=== PATIENT | female | born 1975 | race Two or more races ===

== ENCOUNTER 2018-11-10 17:58 | Inpatient (IN) | payer MEDICAID ==
[~2018-11-10] VITALS: Ht 154.9 cm; Wt 66.2 kg
--- NOTE | 2018-11-10 17:58 | NUR ---
PT BIBSELF FOR ABD PAIN, LOWER ABD. ALSO C/O BACK PAIN AND PRESSURE IN VAGINA; PT AAOX4, -SOB, NAD NOTED, VSS, PENDING MD PONCE
[2018-11-10 18:45] LABS: APPEARANCE,URINE Slightly Cloudy (CLEAR); BILIRUBIN,URINE Negative (NEGATIVE); BLOOD, URINE Trace-intact Ery/uL (NEGATIVE); COLOR,URINE DARK YELLOW (YELLOW); KETONES,URINE Negative (NEGATIVE); LEUKOCYTE ESTERASE ,URINE Small (NEGATIVE); NITRITE, URINE Positive (NEGATIVE); PROTEIN,URINE 30 mg/dl (NEGATIVE); UGLUCOSE Negative (NEGATIVE)
[2018-11-10 18:52] LABS: BACTERIA,URINE Moderate /HPF (None Seen); SQUAMOUS EPITHELIAL CELL,UR Moderate /HPF (None Seen)
[2018-11-10] MEDS ORDERED: ONDANSETRON HCL/PF 4 MG/2 ML VIAL ONE (18:54)
[2018-11-10] MEDS ORDERED: MORPHINE SULFATE INJ 4 MG/ML DISP.SYRIN ONE (18:54)
[2018-11-10 18:55] LABS: BASOPHILS # (AUTO) 0.1 /CMM (0.0-0.2); BASOPHILS % (AUTO) 0.6 % (0.0-2.0); LYMPHOCYTES % (AUTO) 10.3 % (20.0-44.0); MEAN CORPUSCULAR HGB CONC 33 g/dl (31.0-36.0); MEAN CORPUSCULAR VOLUME 93 fL (82-100); MONOCYTES # (AUTO) 0.6 /CMM (0.1-1.30); MONOCYTES % (AUTO) 5.9 % (2.0-12.0); NEUTROPHILS # (AUTO) 7.9 /CMM (1.8-8.9); NEUTROPHILS % (AUTO) 81.2 % (43.0-81.0); PLATELET COUNT (AUTO) 343 /CMM (150-450); WHITE BLOOD COUNT (AUTO) 9.7 K/uL (4.3-11.0)
[2018-11-10 18:59] LABS: HEMATOCRIT 18 % (33-45); HEMOGLOBIN 5.9 g/dL (11.5-14.8); RED BLOOD CELL COUNT(AUTO) 1.92 MIL/uL (4.0-5.2)
[2018-11-10] MEDS ORDERED: IV NS 0.9% 1,000 ML BAG IV ONE (19:00)
[2018-11-10] MEDS ORDERED: ONDANSETRON HCL/PF 4 MG/2 ML VIAL IVP ONE (19:00)
[2018-11-10] MEDS ORDERED: MORPHINE SULFATE INJ 2 MG/ML DISP.SYRIN IV ONE (19:00)
[2018-11-10 19:04] LABS: CALCIUM, SERUM 8.6 mg/dL (8.5-10.1); CREATININE 0.9 mg/dL (0.6-1.3); POTASSIUM 3.6 mmol/L (3.5-5.1)
--- NOTE | 2018-11-10 19:06 | NUR ---
HGB 5.9; HCT 18 JUAN ANTONIO TRUJILLO
[2018-11-10 19:17] LABS: ALBUMIN 3.5 g/dL (3.4-5.0); BILIRUBIN,DIRECT 0.7 mg/dL (0.0-0.2); BILIRUBIN,TOTAL 2.8 mg/dL (0.2-1.0)
--- NOTE | 2018-11-10 19:19 | NUR ---
REPORT GIVEN TO EMA FOR CONNIE
--- NOTE | 2018-11-10 19:32 | NUR ---
NET LEAD ARCHITECT IS AT THE BEDSIDE FOR BLOOD DRAW. BLOOD CULTURES X 2.
--- NOTE | 2018-11-10 19:35 | NUR ---
COMPUTER SUPPORT SPECIALIST INSTRUCTOR MARTI ELLIS SPEAKING TO PA
--- NOTE | 2018-11-10 19:39 | NUR ---
CALLED HOUSE SUP FOR MS BED
--- NOTE | 2018-11-10 19:45 | NUR ---
Annabella TRONCOSO PA-C IS AT THE BEDSIDE SPEAKING TO THE PT RE: POC. SHELLEY CANALES IS AT THE BEDSIDE DOING MONGOLIAN TRANSLATION FOR SHANA OLSON
[2018-11-10] MEDS ORDERED: ZOLPIDEM TARTRATE 5 MG TABLET PO PRN (20:00)
[2018-11-10] MEDS ORDERED: MAG HYDROX/AL HYDROX/SIMETH 30 ML UDC PO PRN (20:00)
[2018-11-10] MEDS ORDERED: ONDANSETRON HCL/PF 4 MG/2 ML VIAL IVP PRN (20:00)
[2018-11-10] MEDS ORDERED: Z GUARD REMEDY 2 OZ OINT TP PRN (20:00)
[2018-11-10] MEDS ORDERED: CEFTRIAXONE 1GM BAG (ER ONLY) 1 GM/50 ML PIGGYBACK IV ONE (20:00)
[2018-11-10] MEDS ORDERED: ACETAMINOPHEN 325 MG TABLET PO PRN (20:00)
--- NOTE | 2018-11-10 20:03 | NUR ---
MS BED 110 GIVEN
[2018-11-10 20:10] LABS: OCCULT BLOOD STOOL NEGATIVE (NEGATIVE)
[2018-11-10] MEDS ORDERED: IOHEXOL-300 100 ML VIAL IV ONE (20:11)
--- NOTE | 2018-11-10 20:12 | NUR ---
PT LEFT FOR CT VIA GURNEY.
[2018-11-10 20:15] LABS: BAND % (MANUAL) 1 % (0.0-5.0); EOSINOPHILS % (MANUAL) 1 % (0-4); LYMPHOCYTES % (MANUAL) 10 % (16-48); MONOCYTES % (MANUAL) 1 % (0-11.0); NEUTROPHILS % (MANUAL) 87 (42-76)
[2018-11-10] MEDS ORDERED: CEFTRIAXONE 1GM BAG (ER ONLY) 50 ML IV ONE (20:16)
--- NOTE | 2018-11-10 20:22 | NUR ---
PT RETURNED FROM CT.
--- NOTE | 2018-11-10 21:04 | NUR ---
LAB CALLED PT IS POSITIVE FOR ANTIBODIES.
--- NOTE | 2018-11-10 21:16 | NUR ---
Parris balderas in [facility] - 11/10/18 at 2121 by ROLANDO REPORT GIVEN TO KEYUR THOMSON
--- NOTE | 2018-11-10 21:17 | NUR ---
Parris balderas in [facility] - 11/10/18 at 2121 by ROLANDO [id number] HOLD FOR GD,
--- NOTE | 2018-11-10 22:00 | NUR ---
RN ADMITTING NOTES BROUGHT PT FROM ER, AWAKE ALERT ORIENTEDX4, BREATHING EVEN AND UNLABORED ON ROOM AIR, NO SOB. NO COMPLAINT OF PAIN OR DISCOMFORT AT THIS TIME. IV ACCESS ON THE RIGHT AC. BED IN LOWEST LOCKED POSITION, CALL LIGHT WITHIN REACH AT ALL TIMES, WILL CONTINUE TO MONITOR AND ENTER ADMISSION.
--- NOTE | 2018-11-10 22:07 | NUR ---
PT WAS TRANSPORTED TO [facility] VIA [facility] WITH ALIX LOPEZ AND DARIUS, SHELLEY.
--- NOTE | 2018-11-10 22:09 | NUR ---
ALIX LOPEZ TO ASSUME CARE OF PT IN TELE.
[2018-11-10] MEDS: IV NS 0.9% 1,000 ML IV PRN (23:32)
[2018-11-11] VITALS (18 sets, daily range): BP systolic 94–115; BP diastolic 38–74
--- NOTE | 2018-11-11 06:12 | NUR ---
SENIOR IT AUDITOR CLOSING NOTES PT REMAINS IN BED, SLEEPING, EASILY AROUSED TO NAME CALL, BREATHING EVEN AND UNLABORED ON ROOM AIR, NO SOB. NO COMPLAINT OF PAIN OR DISCOMFORT AT THIS TIME. FISH EGG PACKER IN PLACE, SR IN THE 80S IV ACCESS ON THE RIGHT AC WITH NS @75ML/HR. BED IN LOWEST LOCKED POSITION, CALL LIGHT WITHIN REACH AT ALL TIMES, WILL ENDORSE TO DAY NURSE FOR CONNIE.
[2018-11-11 06:53] LABS: BASOPHILS # (AUTO) 0.1 /CMM (0.0-0.2); BASOPHILS % (AUTO) 0.8 % (0.0-2.0); EOSINOPHILS % (AUTO) 1.9 % (0.0-6.0); LYMPHOCYTES # (AUTO) 0.7 /CMM (0.8-4.8); LYMPHOCYTES % (AUTO) 8.1 % (20.0-44.0); MEAN CORPUSCULAR HGB CONC 32 g/dl (31.0-36.0); MEAN CORPUSCULAR VOLUME 95 fL (82-100); MONOCYTES # (AUTO) 0.5 /CMM (0.1-1.30); MONOCYTES % (AUTO) 6.1 % (2.0-12.0); NEUTROPHILS # (AUTO) 6.8 /CMM (1.8-8.9); NEUTROPHILS % (AUTO) 83.1 % (43.0-81.0); PLATELET COUNT (AUTO) 301 /CMM (150-450); WHITE BLOOD COUNT (AUTO) 8.2 K/uL (4.3-11.0)
[2018-11-11 07:02] LABS: CALCIUM, SERUM 8.4 mg/dL (8.5-10.1); CREATININE 0.9 mg/dL (0.6-1.3); MAGNESIUM 1.8 mg/dL (1.8-2.4); PHOSPHORUS 3.2 mg/dL (2.5-4.9); POTASSIUM 3.2 mmol/L (3.5-5.1); TOTAL PROTEIN, SERUM 7.1 g/dL (6.4-8.2)
[2018-11-11 07:04] LABS: RED BLOOD CELL COUNT(AUTO) 1.74 MIL/uL (4.0-5.2)
[2018-11-11 07:09] LABS: HEMATOCRIT 17 % (33-45); HEMOGLOBIN 5.3 g/dL (11.5-14.8)
[2018-11-11 07:32] LABS: IRON, SERUM 72 ug/dl (50-175); TOTAL IRON BINDING CAPACITY 199 ug/dl (250-450)
--- NOTE | 2018-11-11 08:02 | NUR ---
RADIO COMMUNICATION COORDINATOR OPENING NOTES RECEIVED PATIENT IN BED. A/O X4 TAJIK SPEAKING NO SIGNS OR SYMPTOMS OF RESPIRATORY DISTRESS C/O LOW FLANK PAIN WILL MEDICATE ORDERED. SINUS ON THE MONITOR SKIN INATCT IVF RUNNING IN RAC # 20 GAUGE @ 75 ML/HR. AWAITING FOR BLOOD FROM BLOOD BANK HGB 5.9 HCT 18. SAFETY AND FALL PRECAUTIONS IN PLACE BED IN LOW POSITION CALL LIGHT WITHIN REACH WILL CONT TO MONITOR ACCORDINGLY.
[2018-11-11] MEDS: HYDROCODONE/APAP 5/325MG 1 EACH TABLET PO PRN ×2 (08:14→15:49)
[2018-11-11 08:54] LABS: EOSINOPHILS % (MANUAL) 2 % (0-4); LYMPHOCYTES % (MANUAL) 6 % (16-48); MONOCYTES % (MANUAL) 7 % (0-11.0); NEUTROPHILS % (MANUAL) 85 (42-76)
[2018-11-11] MEDS: POTASSIUM CHLORIDE 20 MEQ TAB.PRT.SR PO SCH ×2 (09:48→10:30)
[2018-11-11] MEDS ORDERED: POTASSIUM CHLORIDE 20 MEQ TAB.PRT.SR PO ONE (12:00)
[2018-11-11] MEDS: IV NS 0.9% 1,000 ML IV PRN (12:58)
--- NOTE | 2018-11-11 14:17 | NUR ---
LAB CALLED IN REGARDS TO BLOOD TRANSFUSION HAS WARM AUTOANTIBODY AND NO ALOANTIBODY PRESENT DR LOU NOTIFIED PER LABS REQUEST
--- NOTE | 2018-11-11 14:21 | NUR ---
DR LOU REPLIED AND WOULD LIKE DR WHITT TO BE CONSULTED
--- NOTE | 2018-11-11 14:35 | NUR ---
DR WHITT CALLED BACK AND WILL CALL LAB
[2018-11-11] MEDS: methylPREDNISolone SOD SUCC 125 MG/2ML VIAL IV SCH (15:42)
--- NOTE | 2018-11-11 17:12 | NUR ---
BLOOD TRABFUSION STARTED @ 130 ML/HR FOR FIRST 15 MINUTES WILL BE LOWERED IF NO RXN
--- NOTE | 2018-11-11 19:01 | NUR ---
RN MS NOTES NOTES PATIENT IN BED. A/O X4 EGYPTIAN SPEAKING NO SIGNS OR SYMPTOMS OF RESPIRATORY DISTRESS C/O LOW FLANK PAIN WILL MEDICATE ORDERED.AMBULATORY IN ROOM AND TO BATHROOM SKIN INTACT PRBC RUNNING IN RAC #20 GAUGE HGB 5.[address] WHITT TO SEE PATIENT ORDERS OBTAINED.POTASSIUM REPLACED ORDERED CONSENT SIGNED FOR CT OF NECK AND CHEST AFTER TRANSFUSION.MULTIPLE FAMILY MEMBERS AT BEDSIDE THROUGHOUT THE DAY. SAFETY AND FALL PRECAUTIONS IN PLACE BED IN LOW POSITION CALL LIGHT WITHIN REACH
--- NOTE | 2018-11-11 19:15 | NUR ---
MS RN NOTE PATIENT RECEIVED IN BED WITH FAMILY AT BEDSIDE TOLERATING BLOOD TRANSFUSION NO S/S OF REJECTION AT THIS TIME. POC DISCUSSED WITH FAMILY AND GOALS STATED.
--- NOTE | 2018-11-11 19:17 | NUR ---
REPORT ENDORSED TO NOC
[2018-11-11] MEDS: FOLIC ACID 1 MG TABLET PO SCH (19:34)
--- NOTE | 2018-11-11 20:30 | NUR ---
MS RN NOTE BLOOD TRANSFUSION COMPLETED NO S/S OF ACUTE REACTION AT THIS TIME. US OF ABD/PELVIS/ TRANS VAG TAKEN AT THIS TIME WELL.
[2018-11-11] MEDS: CEFTRIAXONE 1 G in IV D5W 50 ML IV SCH (20:32)
[2018-11-11] MEDS ORDERED: IOHEXOL-300 100 ML VIAL IV ONE (21:20)
[2018-11-11] MEDS ORDERED: IV NS 0.9% 250 ML IV ONE (21:20)
[2018-11-11] MEDS ORDERED: CT SWABBABLE VALVE TRANS SET 1 EA INFUS.SET MC ONE (21:20)
--- NOTE | 2018-11-11 21:30 | NUR ---
MS RN NOTE PATIENT TAKEN FOR CT OF NECK AND CHEST PER MD ORDER.
--- NOTE | 2018-11-11 22:15 | NUR ---
MS RN NOTE PATIENT RETURNED FROM CT
[2018-11-11 22:19] LABS: BASOPHILS % (AUTO) 0.2 % (0.0-2.0); EOSINOPHILS % (AUTO) 0.1 % (0.0-6.0); HEMATOCRIT 21 % (33-45); LYMPHOCYTES # (AUTO) 0.4 /CMM (0.8-4.8); LYMPHOCYTES % (AUTO) 3.4 % (20.0-44.0); MEAN CORPUSCULAR HGB CONC 33 g/dl (31.0-36.0); MEAN CORPUSCULAR VOLUME 92 fL (82-100); MONOCYTES # (AUTO) 0.1 /CMM (0.1-1.30); MONOCYTES % (AUTO) 0.6 % (2.0-12.0); NEUTROPHILS % (AUTO) 95.7 % (43.0-81.0); PLATELET COUNT (AUTO) 350 /CMM (150-450); RED BLOOD CELL COUNT(AUTO) 2.32 MIL/uL (4.0-5.2); WHITE BLOOD COUNT (AUTO) 10.5 K/uL (4.3-11.0)
[2018-11-12] VITALS: BP 104/58
--- NOTE | 2018-11-12 01:45 | NUR ---
MS RN NOTE DR. MARCIAL READ AND INTERPRETED RESULTS OF CT OF NECK/CHEST, AND TRANS VAG ULTRASOUND. INSTRUCTED RN TO ENDORSE FINDINGS TO THE AM MD FIRST THING IN THE MORNING.
[2018-11-12 06:21] LABS: BASOPHILS % (AUTO) 0.2 % (0.0-2.0); HEMATOCRIT 21 % (33-45); LYMPHOCYTES # (AUTO) 0.6 /CMM (0.8-4.8); MEAN CORPUSCULAR HGB CONC 33 g/dl (31.0-36.0); MEAN CORPUSCULAR VOLUME 93 fL (82-100); MONOCYTES # (AUTO) 0.2 /CMM (0.1-1.30); MONOCYTES % (AUTO) 2.9 % (2.0-12.0); NEUTROPHILS # (AUTO) 7.4 /CMM (1.8-8.9); NEUTROPHILS % (AUTO) 89.9 % (43.0-81.0); PLATELET COUNT (AUTO) 363 /CMM (150-450); RED BLOOD CELL COUNT(AUTO) 2.23 MIL/uL (4.0-5.2); WHITE BLOOD COUNT (AUTO) 8.3 K/uL (4.3-11.0)
[2018-11-12 06:32] LABS: HEMOGLOBIN 6.8 g/dL (11.5-14.8)
[2018-11-12 06:37] LABS: CALCIUM, SERUM 8.9 mg/dL (8.5-10.1); CREATININE 0.9 mg/dL (0.6-1.3); POTASSIUM 4.2 mmol/L (3.5-5.1)
[2018-11-12] MEDS: HYDROCODONE/APAP 5/325MG 1 EACH TABLET PO PRN ×2 (06:52→22:11)
[2018-11-12 07:08] LABS: FERRITIN 776 ng/mL (8-388)
--- NOTE | 2018-11-12 07:10 | NUR ---
LEFT MESSAGE WITH DR WHITT IN REGARDS TO PELVIS US RESULTS.
[2018-11-12 07:25] LABS: BAND % (MANUAL) 2 % (0.0-5.0); LYMPHOCYTES % (MANUAL) 11 % (16-48); MONOCYTES % (MANUAL) 3 % (0-11.0); NEUTROPHILS % (MANUAL) 84 (42-76)
--- NOTE | 2018-11-12 07:33 | NUR ---
FRIT BURNER OPENING NOTES RECEIVED PATIENT IN BED. A/O X4 CAMEROONIAN SPEAKING NO SIGNS OR SYMPTOMS OF RESPIRATORY DISTRESS C/O LOW FLANK PAIN WILL MEDICATE ORDERED. SINUS ON THE MONITOR SKIN INATCT IVF RUNNING IN RAC # 20 GAUGE @ 75 ML/HR. AWAITING FOR BLOOD FROM BLOOD BANK HGB 5.9 HCT 18. SAFETY AND FALL PRECAUTIONS IN PLACE BED IN LOW POSITION CALL LIGHT WITHIN REACH WILL CONT TO MONITOR ACCORDINGLY. Addendum: 11/12/18 at 0735 by LATRELL BOONE RN CORRECT NOTES RN MS OPENING NOTES RECEIVED PATIENT IN BED. A/O X4 CAMEROONIAN SPEAKING NO SIGNS OR SYMPTOMS OF RESPIRATORY DISTRESS C/O LOW FLANK PAIN WILL MEDICATE ORDERED. SKIN INTACT IVF RUNNING IN RAC # 20 GAUGE @ 75 ML/HR.AMBULATORY IN ROOM WITH BATHROOM PRIVILEGES. SAFETY AND FALL PRECAUTIONS IN PLACE BED IN LOW POSITION CALL LIGHT WITHIN REACH WILL CONT TO MONITOR ACCORDINGLY.
[2018-11-12 08:00] VITALS: BP 108/73
[2018-11-12] MEDS: methylPREDNISolone SOD SUCC 125 MG/2ML VIAL IV SCH (08:03)
[2018-11-12] MEDS: IV NS 0.9% 1,000 ML IV PRN (08:03)
[2018-11-12] MEDS: FOLIC ACID 1 MG TABLET PO SCH (08:03)
--- NOTE | 2018-11-12 11:22 | NUR ---
DR LOU AT BEDSIDE WITH BRENNA BORGES TO TRANSLATE. INFORMED PATIENT OF POSSIBLE STAGE 4 CERVICAL CANCER OR POSSIBLE LYMPHOMA. PATIENT HAS AUNT ON PHONE TO ALSO HER DIAGNOSIS. STAYED WITH PATIENT TO COMFORT
[2018-11-12 16:00] VITALS: BP 120/80
--- NOTE | 2018-11-12 18:51 | NUR ---
RN MS NOTES PATIENT IN BED. A/O X4 CUBAN SPEAKING NO SIGNS OR SYMPTOMS OF RESPIRATORY DISTRESS C/O LOW FLANK PAIN WILL MEDICATED ORDERED.AMBULATORY IN ROOM AND TO BATHROOM SKIN INTACT IVF NS @ 75 ML/HR RUNNING IN LAC # [address] WHITT TO SEE PATIENT TONIGHT IN REGARDS TO NEW DX OF POSSIBLE STAGE 4 CERVICAL CANCER METS TO LYMPH NODES. CONSENT SIGNED FOR EXCISIONAL BIOPSY OF LYMPH NODE OF L NECK MULTIPLE FAMILY MEMBERS AT BEDSIDE THROUGHOUT THE DAY. SAFETY AND FALL PRECAUTIONS IN PLACE BED IN LOW POSITION CALL LIGHT WITHIN REACH WILL ENDORSE TO NOC
--- NOTE | 2018-11-12 19:12 | NUR ---
REPORT ENDORSED TO NOC
--- NOTE | 2018-11-12 19:15 | NUR ---
MS RN OPENING NOTES PATIENT IN BED. A/O X4, TONGAN SPEAKING. FAMILY AT BEDSIDE. NO SIGNS OR SYMPTOMS OF RESPIRATORY DISTRESS. DENIES ANY PAIN AT THIS TIME. AMBULATORY IN ROOM AND TO BATHROOM. SKIN INTACT IVF NS @ 75 ML/HR RUNNING IN LAC #20 GAUGE, NO INFILTRATION NOTED. DR WHITT AT BEDSIDE EDUCATING PATIENT IN REGARDS TO NEW DX OF POSSIBLE STAGE 4 CERVICAL CANCER METS TO LYMPH NODES. SAFETY AND FALL PRECAUTIONS IN PLACE; BED IN LOW AND LOCKED POSITION, CALL LIGHT WITHIN REACH. WILL CONT TO MONITOR PT.
[2018-11-12 20:00] VITALS: BP 115/62
[2018-11-12] MEDS: CEFTRIAXONE 1 G in IV D5W 50 ML IV SCH (20:36)
[2018-11-13] VITALS (9 sets, daily range): BP systolic 105–130; BP diastolic 54–68
[2018-11-13] MEDS: HYDROCODONE/APAP 5/325MG 1 EACH TABLET PO PRN ×2 (03:49→21:34)
--- NOTE | 2018-11-13 07:30 | NUR ---
RN MS OPENING NOTES RECEIVED REPORT FROM HAND SPRAYER RN. PT IS AWAKE SEMI GALLEGOS. FAMILY IS BEDSIDE. PT DENIES ANY PAIN OR SOB AT PRESENT MOMENT. PT HAS BEEN KEPT NPO SINCE MIDNIGHT AWAITING PROCEDURE. PT HAS A R AC 20 GAUGE NS 75 MLS/HR. PT IS A&OX4 HOWEVER CITIZEN OF [place] SPEAKING ONLY. BED IS LOCKED AND IN LOWEST POSITION WITH CALL LIGHT IN REACH WILL CONTINUE TO MONITOR.
[2018-11-13 07:32] LABS: BASOPHILS # (AUTO) 0.1 /CMM (0.0-0.2); BASOPHILS % (AUTO) 0.4 % (0.0-2.0); EOSINOPHILS % (AUTO) 0.7 % (0.0-6.0); HEMATOCRIT 26 % (33-45); HEMOGLOBIN 8.6 g/dL (11.5-14.8); LYMPHOCYTES # (AUTO) 1.5 /CMM (0.8-4.8); LYMPHOCYTES % (AUTO) 12.9 % (20.0-44.0); MEAN CORPUSCULAR HGB CONC 33 g/dl (31.0-36.0); MEAN CORPUSCULAR VOLUME 93 fL (82-100); MONOCYTES # (AUTO) 0.5 /CMM (0.1-1.30); MONOCYTES % (AUTO) 4.1 % (2.0-12.0); NEUTROPHILS # (AUTO) 9.6 /CMM (1.8-8.9); NEUTROPHILS % (AUTO) 81.9 % (43.0-81.0); PLATELET COUNT (AUTO) 360 /CMM (150-450); RED BLOOD CELL COUNT(AUTO) 2.82 MIL/uL (4.0-5.2); WHITE BLOOD COUNT (AUTO) 11.8 K/uL (4.3-11.0)
--- NOTE | 2018-11-13 07:41 | NUR ---
MS RN CLOSING NOTES NO ACUTE CHANGES THROUGHOUT SHIFT. ALL MD ORDERS ATTENDED. ALL NEEDS MET AND ANTICIPATED. SAFETY MEASURES MAINTAINED. ENDORSED TO AM SHIFT FOR CONNIE.
[2018-11-13 07:44] LABS: CALCIUM, SERUM 9.4 mg/dL (8.5-10.1); CREATININE 1.1 mg/dL (0.6-1.3); PHOSPHORUS 4.7 mg/dL (2.5-4.9); POTASSIUM 3.6 mmol/L (3.5-5.1)
[2018-11-13] MEDS: FOLIC ACID 1 MG TABLET PO SCH (08:47)
[2018-11-13] MEDS: methylPREDNISolone SOD SUCC 125 MG/2ML VIAL IV SCH (08:47)
[2018-11-13] MEDS ORDERED: FENTANYL PF 100MCG/2ML AMPUL ONE (14:19)
[2018-11-13] MEDS ORDERED: MIDAZOLAM HCL 2 MG/2ML VIAL ONE (14:19)
[2018-11-13] MEDS ORDERED: ROCURONIUM BROMIDE 50 MG/5 ML ONE (14:19)
[2018-11-13] MEDS ORDERED: BUPIVACAINE MPF W/EPI 0.25% 30 ML VIAL ONE (15:30)
--- NOTE | 2018-11-13 15:30 | NUR ---
PT BACK FROM SURGERY. PT VITALS STABLE. PT IS DROWSY BUT AROUSALS. WILL CONTINUE TO MONITOR.
--- NOTE | 2018-11-13 19:44 | NUR ---
RN CLOSING NOTES GAVE REPORT TO CHIEF TECHNICIAN RN. PT IS AWAKE SEMI GALLEGOS. FAMILY IS BEDSIDE. PT DENIES ANY PAIN OR SOB AT PRESENT MOMENT. PT HAD PROCEDURE OF LEFT NECK MASS BIOPSY TOLERATING WELL. PT HAS A R AC 20 GAUGE NS 75 MLS/HR. PT IS A&OX4 HOWEVER ITALIAN SPEAKING ONLY. BED IS LOCKED AND IN LOWEST POSITION WITH CALL LIGHT IN REACH WILL ENDORSE CONTINUITY OF CARE TO CHIEF TECHNICIAN RN.
--- NOTE | 2018-11-13 19:55 | NUR ---
RN MS INITIAL NOTES RECEIVED AWAKE IN BED FAMILY IS BEDSIDE. PT DENIES ANY PAIN OR SOB AT PRESENT MOMENT. SEEN BY DR WHITT, REGULAR DIET RESUMED, ALL NEEDS ATTENDED, KEPT CLEAN AND DRY PT HAS A R AC 20 GAUGE NS 75 MLS/HR. PT IS A&OX4 HOWEVER ARMENIAN SPEAKING ONLY. BED IS LOCKED AND IN LOWEST POSITION WITH CALL LIGHT IN REACH WILL CONTINUE TO MONITOR.
[2018-11-13] MEDS: CEFTRIAXONE 1 G in IV D5W 50 ML IV SCH (20:23)
[2018-11-13] MEDS: IV NS 0.9% 1,000 ML IV PRN (21:35)
[2018-11-14 00:09] VITALS: BP 115/76
[2018-11-14] MEDS: HYDROCODONE/APAP 5/325MG 1 EACH TABLET PO PRN ×3 (04:18→16:00)
--- NOTE | 2018-11-14 05:35 | NUR ---
MS-1/GASFITTER PT COMPLAINT 12/[address] PELLETIER PAGED AWAITING CALL BACK.
[2018-11-14 07:17] LABS: BASOPHILS % (AUTO) 0.2 % (0.0-2.0); EOSINOPHILS % (AUTO) 0.7 % (0.0-6.0); HEMATOCRIT 24 % (33-45); LYMPHOCYTES # (AUTO) 1.2 /CMM (0.8-4.8); LYMPHOCYTES % (AUTO) 9.7 % (20.0-44.0); MEAN CORPUSCULAR HGB CONC 33 g/dl (31.0-36.0); MEAN CORPUSCULAR VOLUME 91 fL (82-100); MONOCYTES # (AUTO) 0.6 /CMM (0.1-1.30); NEUTROPHILS # (AUTO) 10.2 /CMM (1.8-8.9); NEUTROPHILS % (AUTO) 84.4 % (43.0-81.0); PLATELET COUNT (AUTO) 318 /CMM (150-450); RED BLOOD CELL COUNT(AUTO) 2.64 MIL/uL (4.0-5.2)
--- NOTE | 2018-11-14 07:25 | NUR ---
RN CLOSING NOTES RECEIVED REPORT FROM CUTTING MACHINE FIXER RN. PT IS AWAKE SEMI GALLEGOS. FAMILY IS BEDSIDE. PT HAS SOME PAIN IN ABD AND BACK PT RATES PAIN 4 OUT OF 10.PAIN IS RELIEVED WITH HEAT PACKS APPLIED TO ABDOMEN. PT HAS REGULAR DIET ORDERED. PT HAS A R AC 20 GAUGE NS 75 MLS/HR. PT IS A&OX4 HOWEVER SETSWANA SPEAKING ONLY. BED IS LOCKED AND IN LOWEST POSITION WITH CALL LIGHT IN REACH WILL CONTINUE TO MONITOR. Addendum: 11/14/18 at 1617 by GABRIEL BARRETT RN OPENING NOTES
[2018-11-14 07:28] LABS: CALCIUM, SERUM 8.9 mg/dL (8.5-10.1); POTASSIUM 3.7 mmol/L (3.5-5.1)
[2018-11-14 08:00] VITALS: BP 123/53
[2018-11-14] MEDS: FOLIC ACID 1 MG TABLET PO SCH (08:59)
[2018-11-14] MEDS: methylPREDNISolone SOD SUCC 125 MG/2ML VIAL IV SCH (08:59)
[2018-11-14] MEDS: MAGNESIUM HYDROXIDE 30 ML UDC PO PRN ×2 (09:20→15:47)
[2018-11-14] MEDS ORDERED: MORPHINE SULFATE INJ 2 MG/ML DISP.SYRIN IV PRN (10:00)
[2018-11-14 16:00] VITALS: BP 132/82
--- NOTE | 2018-11-14 16:17 | NUR ---
D/C NOTES PT GIVEN BACK BELONGINGS AND SIGNED BELONGINGS LIST. PT TAUGHT BACK EDUCATION THAT WAS TAUGHT TO HER. PACKET GIVEN WITH PRESCRIPTION. IV REMOVED. PT CHANGED BACK INTO HER BELONGINGS. PT TAKEN OUT BY WHEELCHAIR AND WILL BE GOING HOME WITH A RELATIVE NAMED EMILY. PACKET SIGNED LAST VITALS TAKEN AND SKIN IS INTACT. INFORMATION OF OTHER HOSPITAL GIVEN FOR FOLLOW UP CARE. PER DR. WHITT BIOPSY RESULTS SHOULD BE CALLED IN TO PT. PT IS STABLE AND DENIES SOB HOWEVER IS HAVING PAIN, PAIN MEDICATION GIVEN TO EASE TRANSFER TO HOME.
== END 2018-11-14 16:52 | disposition home or self-care (01) | DRG 952 ==
LOC: ER 18:05 → MEDSG1 20:07 → TELE1 21:48 → MEDSG1 11-11 08:45
PROVIDERS: ADMIT Internal Medicine
PROC: 30233N1 Transfusion of Nonautologous Red Blood Cells into Peripheral Vein, Percutaneous Approach (ICD-10-PCS; principal; 2018-11-11)
PROC: 07B23ZX Excision of Left Neck Lymphatic, Percutaneous Approach, Diagnostic (ICD-10-PCS; 2018-11-13)
PROC: 0UBC7ZX Excision of Cervix, Via Natural or Artificial Opening, Diagnostic (ICD-10-PCS; 2018-11-14)
DX: C53.9 Malignant neoplasm of cervix uteri, unspecified (principal); C77.8 Secondary and unspecified malignant neoplasm of lymph nodes of multiple regions; D59.1 Other autoimmune hemolytic anemias; N13.6 Pyonephrosis; R74.0 Nonspecific elevation of levels of transaminase and lactic acid dehydrogenase [LDH]; K59.00 Constipation, unspecified; N83.209 Unspecified ovarian cyst, unspecified side; D63.0 Anemia in neoplastic disease; R93.5 Abnormal findings on diagnostic imaging of other abdominal regions, including retroperitoneum
CPT/HCPCS: 36415; 70491-TC; 71260-TC; 74178; 76856-TC; 80048-TC; 80053-TC; 80061-TC; 80076-TC; 81000-TC; 82272-TC; 82378; 82728-TC; 83540-TC; 83605-TC; 83615-TC; 83690-TC; 83735-TC; 84100-TC; 84703-TC; 85025-TC; 85045-TC; 85730-TC; 86304; 86706; 86803; 86850-TC; 86921-TC; 87040-TC; 87070-TC; 87081-TC; 87086-TC; 87340; 87806; 88305-TC; 88342; A6402; G0378; J0696; J1100; J2250; J2270; J2405; J2704; J2710; J2930; J3010; J3490; J7030; J7050; J7060; P9016-BL; Q9967

== ENCOUNTER 2020-02-22 21:10 | Inpatient (IN) | payer MEDICAID, OTHER ==
[~2020-02-22] VITALS: Ht 160 cm; Wt 57.2 kg
[2020-02-22] MEDS ORDERED: IV NS 0.9% 1,000 ML BAG IV ONE (21:30)
--- NOTE | 2020-02-22 21:30 | NUR ---
BIBS FOR C/O GENERALIZED WEAKNESS FOR THE PAST 2 DAYS. DENIED H/A OR ANY OTHER PAIN OR DISCOMFORT. -N/V. - SOB. PT WAS PLACED ON A MONITOR
[2020-02-22 22:13] LABS: LYMPHOCYTES # (AUTO) 0.8 /CMM (0.8-4.8); MONOCYTES % (AUTO) 10.1 % (2.0-12.0)
[2020-02-22 22:30] LABS: POTASSIUM 3.8 mmol/L (3.5-5.1)
[2020-02-22 22:35] LABS: BILIRUBIN,URINE NEGATIVE (NEGATIVE); BLOOD, URINE TRACE-INTA Ery/uL (NEGATIVE); COLOR,URINE YELLOW (YELLOW); KETONES,URINE NEGATIVE (NEGATIVE); LEUKOCYTE ESTERASE ,URINE LARGE (NEGATIVE); NITRITE, URINE NEGATIVE (NEGATIVE); PH,URINE 6.5 (5.0-8.0); PROTEIN,URINE 100 mg/dl (NEGATIVE); UGLUCOSE NEGATIVE (NEGATIVE)
[2020-02-22 22:39] LABS: ALBUMIN 3.6 g/dL (3.4-5.0); BILIRUBIN,DIRECT 0.8 mg/dL (0.0-0.2); BILIRUBIN,TOTAL 2.1 mg/dL (0.2-1.0)
[2020-02-22 22:45] LABS: APPEARANCE,URINE CLOUDY (CLEAR)
[2020-02-22 22:47] LABS: BASOPHILS % (AUTO) 0.5 % (0.0-2.0); EOSINOPHILS % (AUTO) 1.8 % (0.0-6.0); LYMPHOCYTES % (AUTO) 18.3 % (20.0-44.0); MEAN CORPUSCULAR HGB CONC 33 g/dl (31.0-36.0); MEAN CORPUSCULAR VOLUME 118 fL (82-100); MONOCYTES # (AUTO) 0.5 /CMM (0.1-1.30); NEUTROPHILS # (AUTO) 3.1 /CMM (1.8-8.9); NEUTROPHILS % (AUTO) 69.3 % (43.0-81.0); PLATELET COUNT (AUTO) 161 /CMM (150-450); WHITE BLOOD COUNT (AUTO) 4.5 K/uL (4.3-11.0)
[2020-02-22 22:48] LABS: BACTERIA,URINE Many /HPF (None Seen); SQUAMOUS EPITHELIAL CELL,UR Few /HPF (None Seen); WBC,URINE 21-50 /HPF (0-3)
[2020-02-22 22:49] LABS: RED BLOOD CELL COUNT(AUTO) 0.95 MIL/uL (4.0-5.2)
[2020-02-22 22:52] LABS: HEMATOCRIT 11 % (33-45); HEMOGLOBIN 3.7 g/dL (11.5-14.8)
[2020-02-22] MEDS ORDERED: CEFTRIAXONE 1GM BAG (ER ONLY) 1 GM/50 ML PIGGYBACK IV ONE (23:00)
[2020-02-22 23:06] LABS: BACTERIA,URINE Many /HPF (None Seen); SQUAMOUS EPITHELIAL CELL,UR Few /HPF (None Seen); WBC,URINE 21-50 /HPF (0-3)
--- NOTE | 2020-02-22 23:15 | NUR ---
COVID SWAB OBTAINED AND SENT TO LAB
--- NOTE | 2020-02-22 23:20 | NUR ---
LAB AT BED SIDE FOR BLOOD DRAW
--- NOTE | 2020-02-22 23:25 | NUR ---
EMT AT BED SIDE FOR EKG
--- NOTE | 2020-02-22 23:46 | NUR ---
X RAY AT BED SIDE
[2020-02-23] VITALS (79 sets, daily range): BP systolic 76–126; BP diastolic 35–82
[2020-02-23] MEDS ORDERED: ACETAMINOPHEN 325 MG TABLET PO PRN (00:30)
[2020-02-23] MEDS ORDERED: ALBUMIN 25% 12.5 GM/50 ML BOTTLE IV ONE ×2 (00:30→04:00)
[2020-02-23] MEDS ORDERED: diphenhydrAMINE HCL 50 MG/ML VIAL IV PRN (00:30)
[2020-02-23] MEDS ORDERED: MAGNESIUM HYDROXIDE 30 ML UDC PO PRN (00:30)
[2020-02-23] MEDS ORDERED: Z GUARD REMEDY 2 OZ OINT TP PRN (00:30)
[2020-02-23] MEDS ORDERED: MAG HYDROX/AL HYDROX/SIMETH 30 ML UDC PO PRN (00:30)
[2020-02-23] MEDS ORDERED: ZOLPIDEM TARTRATE 5 MG TABLET PO PRN (00:30)
[2020-02-23] MEDS ORDERED: ONDANSETRON HCL/PF 4 MG/2 ML VIAL IVP PRN (00:30)
[2020-02-23] MEDS ORDERED: IV NS 0.9% 500 ML IV STA (01:02)
--- NOTE | 2020-02-23 01:29 | NUR ---
REPORT CALLED TO SCREEN REPAIRER CRUSHERALIX NICE. WILL TRANSPORT PT VIAL ACLS PROTOCOL.
[2020-02-23] MEDS ORDERED: FERR325T23 PO (01:34)
--- NOTE | 2020-02-23 01:50 | NUR ---
INFORMATICS PHYSICIAN LIAISON NOTES - ADMISSION RECEIVED PATIENT FROM ER VIA [facility]. PATIENT WAS ABLE TO AMBULATE STEADILY FROM [facility] TO HOSPITAL BED. PATIENT ALERT AND ORIENTED X4, ABLE TO VERBALIZE NEEDS. ALTHOUGH H/H CRITICALLY LOW, PATIENT ONLY COMPLAINS OF HEADACHE. WILL ADMINISTER PAIN MEDS ORDERED. NOTED WITH BILATERAL NEPHROSTOMY TUBES, DRAINING CLEAR YELLOW URINE. SKIN INTACT, PALE. RW #20, LFA #22G, PATENT AND INTACT. PATIENT BELONGINGS CHECKED WITH INVENTORY LIST. PATIENT NOTED WITH $1000 INFANTE. PATIENT REFUSED TO PLACE MONEY IN ICU SAFE FOR SAFE KEEPING, REQUESTING TO KEEP MONEY WITH HER AT ALL TIMES, NO FAMILY AVAILABLE AT THIS TIME TO STONE TRIMMER MONEY. PATIENT SIGNED REFUSAL ON INVENTORY CHECK LIST. PLAN OF CARE DISCUSSED WITH THE PATIENT, BLOOD TRANSFUSION STILL NOT READY. WILL START BLOOD TRANSFUSION WHEN AVAILABLE.
--- NOTE | 2020-02-23 01:58 | NUR ---
a total of 800ml urine was emptied from bilateral nephrostomy bags
--- NOTE | 2020-02-23 02:01 | NUR ---
pt was transferred to ICU under ACLS.
[2020-02-23] MEDS ORDERED: OXYC-128 PO (02:27)
[2020-02-23] MEDS: IV NS 0.9% 1,000 ML IV PRN ×3 (03:07→20:01)
[2020-02-23] MEDS: HYDROCODONE/APAP 5/325MG TABLET PO PRN (03:12)
[2020-02-23] MEDS ORDERED: NOREPINEPHRINE 8 MG in IV NS 0.9% 242 ML IV PRN (03:30)
[2020-02-23] MEDS ORDERED: NOREPINEPHRINE 8MG/250ML RTU 250 ML IV ONE (03:31)
--- NOTE | 2020-02-23 03:35 | NUR ---
FUR FEEDER NOTES BLOOD PRESSURE 76/36, RECHECKED 81/35, DESPITE ALBUMIN 25MG INFUSION AND 500ML NS BOLUS, WITH MAINTENANCE FLUIDS OF NS @ 125 ML/HR. LUIS SHEFFIELD NP NOTIFIED REGARDING LOW BLOOD PRESSURE, WITH NEW ORDER FOR LEVOPHED DRIP TO KEEP SBP 90MMHG, AND PICC LINE INSERTION. [place]AN SPEAKING STAFF AT [facility] TO EXPLAIN NEW ORDERS TO THE PATIENT, WHOM VERBALIZES UNDERSTANDING. WILL CARRY OUT NEW ORDERS AND MONITOR CLOSELY Addendum: 02/23/20 at 0339 by GAVIN MARQUEZ RN ALBUMIN 25 G
[2020-02-23 03:58] LABS: EOSINOPHILS % (MANUAL) 1 % (0-4); LYMPHOCYTES % (MANUAL) 22 % (16-48); MONOCYTES % (MANUAL) 12 % (0-11.0); NEUTROPHILS % (MANUAL) 65 (42-76)
[2020-02-23] MEDS ORDERED: oxyCODONE/APAP (5/325 MG) 1 UDTAB TABLET PO PRN (04:00)
--- NOTE | 2020-02-23 04:00 | NUR ---
ASSISTANT PROGRAM MANAGER NOTES RECEIVED CALL FROM BLOOD BANK, SPOKE TO ELROY. PER ELROY, BLOOD NOT YET AVAILABLE. ASKED FOR ESTIMATE TIME OF ARRIVAL, PER ELROY, "WHENEVER THE COMBATANT SWIMMER DELIVERS THE BLOOD". LUIS WHITMORE MADE AWARE THAT BLOOD IS NOT YET READY. WILL CONTINUE LOW DOSE LEVOPHED FOR BP SUPPORT AND IV FLUIDS NS @ 125 ML/HR
--- NOTE | 2020-02-23 04:15 | NUR ---
JOB FORWARDER NOTES LUIS SHEFFIELD NP AWARE THAT BLOOD NOT READY YET AND PENDING PICC LINE INSERTION. 3RD VIAL OF ALBUMIN WAS ORDERED BY LUIS WHITMORE FOR BP SUPPORT, WITH ORDER TO KEEP LOW DOSE LEVOPHED DRIP (NO CENTRAL LINE) TO MAINTAIN SBP > 90, STATUS POST 500ML NS BOLUS AND MAINTENANCE FLUIDS OF NS @ 125ML/HR. WILL CARRY OUT ALL NEW ORDERS
--- NOTE | 2020-02-23 05:00 | NUR ---
ENDOCRINOLOGY NURSE NOTES - FLU SHOT REFUSAL OFFERED PATIENT FLU SHOT, PATIENT REFUSED. PER PATIENT, SHE "DOES NOT BELIEVE IN THE FLU SHOT" AND CONTINUES TO STRONGLY REFUSE FLU VACCINATION
--- NOTE | 2020-02-23 07:00 | NUR ---
BOX SPRING MAKER NOTES BEDSIDE REPORT GIVEN TO DAY SHIFT NURSE. PATIENT REMAINS A/O X4, ABLE TO VERBALIZE NEEDS, ICELANDIC SPEAKING STAFF AT BEDSIDE TO AID IN TRANSLATION. PATIENT REFUSES TO PLACE MONEY IN SAFE. DURING BEDSIDE REPORT, MONEY COUNTED WITH DAY SHIFT NURSE IN FRONT OF PATIENT $20 X (15), $50 X (8), $100 X (3), TOTAL $1000. BLOOD TRANSFUSION STILL NOT STARTED DUE TO BLOOD NOT BEING AVAILABLE/NOT YET DELIVERED BY [facility].
--- NOTE | 2020-02-23 07:45 | NUR ---
ICU/RN: INITIAL NOTES,AM RECEIVED REPORT FROM NIGHT NURSE. PT ALERT, AWAKE, FOLLOWING COMMANDS. SINUS ON TELE. PT ON LEVO FOR BP SUPPORT, IV INFUSING ORDERED. PRBC'S PENDING, TAKING LONGER DUE TO ANTIBODIES. PIVS PATENT AND INTACT, NO S/S OF INFECTION OR INFILTRATION NOTED. ALL NEEDS WILL BE ATTENDED TO SAFETY MEASURES TAKEN, BED IN LOW POSITION, SIDE RAILS UP, CALL LIGHT WITHIN REACH. WILL CONTINUE CARE. NEPHROSTOMY TUBES IN PLACE, DRAINING YELLOW URINE.
--- NOTE | 2020-02-23 08:29 | NUR ---
ICU/RN: BLOOD TRANSFUSION STARTED. DUE TO ANTIBODIES IT TOOK BLOOD LONGER TO ARRIVE. BLOOD PRODUCT NOT IN SYSTEM, HAD TO DO AN EMERGENCY RELEASE FORM FROM LAB. COSIGNED AND CHECKED WITH ANOTHER RN. BLOOD TRANSFUSION STARTED. AFEBRILE. WILL CONTINUE TO MONITOR VITALS.
--- NOTE | 2020-02-23 08:45 | NUR ---
ICU/RN: BLOOD TRANSFUSION INFUSING, TOLERATING WELL, NO ADVERSE REACTIONS NOTED. WILL CONTINUE TO MONITOR.
[2020-02-23] MEDS ORDERED: CEFTRIAXONE 1 G in IV D5W 50 ML IV SCH ×2 (09:00→23:00)
[2020-02-23] MEDS: PANTOPRAZOLE 40 MG VIAL IV SCH (10:08)
[2020-02-23] MEDS: FERROUS SULFATE (325 MG) 325 MG/TAB TABLET PO SCH ×2 (10:08→17:49)
--- NOTE | 2020-02-23 12:03 | NUR ---
ICU/RN: SECOND UNIT STARTED, WILL REASSESS H/H POST SECOND UNIT. TOLERATING WELL, WILL CONTINUE TO MONITOR.
[2020-02-23 16:15] LABS: MAGNESIUM 1.4 mg/dL (1.8-2.4); PHOSPHORUS 2.7 mg/dL (2.5-4.9)
[2020-02-23 16:17] LABS: BASOPHILS % (AUTO) 0.4 % (0.0-2.0); EOSINOPHILS % (AUTO) 1.4 % (0.0-6.0); LYMPHOCYTES # (AUTO) 0.5 /CMM (0.8-4.8); LYMPHOCYTES % (AUTO) 17.2 % (20.0-44.0); MEAN CORPUSCULAR HGB CONC 34 g/dl (31.0-36.0); MEAN CORPUSCULAR VOLUME 100 fL (82-100); MONOCYTES # (AUTO) 0.2 /CMM (0.1-1.30); MONOCYTES % (AUTO) 7.7 % (2.0-12.0); NEUTROPHILS # (AUTO) 2.1 /CMM (1.8-8.9); NEUTROPHILS % (AUTO) 73.3 % (43.0-81.0); PLATELET COUNT (AUTO) 110 /CMM (150-450); WHITE BLOOD COUNT (AUTO) 2.9 K/uL (4.3-11.0)
[2020-02-23 16:18] LABS: RED BLOOD CELL COUNT(AUTO) 1.49 MIL/uL (4.0-5.2)
[2020-02-23 16:20] LABS: HEMATOCRIT 15 % (33-45)
--- NOTE | 2020-02-23 16:20 | NUR ---
ICU/RN: CRITICAL LABS REPORTED TO MD. Mauro/Zunilda 09/29.8
[2020-02-23 16:52] LABS: THYROID STIMULATING HORMONE 3.539 uIU/mL (0.358-3.74)
--- NOTE | 2020-02-23 19:23 | NUR ---
ICU/RN ENDING NOTES,AM REPORT ENDORSED TO NIGHT NURSE FOR CONNIE. PT ALERT, AWAKE, FOLLOWS COMMANDS. NO ACUTE DISTRESS NOTED. SINUS ON TELE. ON ROOM AIR. 3RD BLOOD TRANSFUSION INFUSING, TOLERATING WELL, NO ADVERSE REACTIONS NOTED. ALL NEEDS ATTENDED TO, SAFETY MEASURES TAKEN, BED IN LOW POSITION, SIDE RAILS UP, CALL LIGHT WITHIN REACH. ORDER FOR 4TH TRANSFUSION PENDING. ANTIBODIES SO IT WILL BE DELIVERED BY [facility].
--- NOTE | 2020-02-23 19:35 | NUR ---
ICU/HAND II TUBE BENDER RECEIVED REPORT FROM DAY NURSE. PT CURRENTLY HAS THIRD BAG OF BLOOD INFUSING, UNIT # [id number]. THIS WAS HUNG UP @1655 FROM DAY SHIFT, VITAL SIGNS ARE DOCUMENTED ON THE COMPUTER HOWEVER THERE HAS PAPERWORK THAT IS DOCUMENTED WELL. WILL CONTINUE TO MONITOR THIS PT.
[2020-02-23] MEDS: oxyCODONE/APAP (5/325 MG) 1 UDTAB TABLET PO PRN (20:01)
--- NOTE | 2020-02-23 20:10 | NUR ---
ICU/CHILD CENTER ASSISTANT BLOOD BAG # 3 IS COMPLETED. CALLED LAB FOR BAG #4 HOWEVER WAS TOLD THIS IS COMING FROM THE [facility] DUE TO PT HAS ANTIBODIES. WILL CONTINUE TO FOLLOW UP TO SEE IF BLOOD HAS ARRIVED.
--- NOTE | 2020-02-23 20:30 | NUR ---
ICU/SKILLED LABOR PT COMPLAINED ABOUT PAIN, RATED 7/10 TO BACK SIDE. PT WAS GIVEN PERCOCET 5/325 1 TAB. WILL CONTINUE TO MONITOR THIS PT.
[2020-02-23 21:18] LABS: BAND % (MANUAL) 3 % (0.0-5.0); EOSINOPHILS % (MANUAL) 1 % (0-4); LYMPHOCYTES % (MANUAL) 23 % (16-48); MONOCYTES % (MANUAL) 7 % (0-11.0); NEUTROPHILS % (MANUAL) 66 (42-76)
[2020-02-23] MEDS: CEFTRIAXONE 1 G in IV D5W 50 ML IV SCH (21:26)
--- NOTE | 2020-02-23 22:30 | NUR ---
ICU/FUNCTIONAL TESTER CALLED BLOOD BANK FOR THE FOURTH BAG OF PRBC, HOWEVER IT IS NOT AVAILABLE FROM [facility]. AWAITING FOR CALL FROM BLOOD BANK TO TRANSFUSE BLOOD.
--- NOTE | 2020-02-23 22:30 | NUR ---
ICU/GOLD RECLAIMER PT IS CURRENTLY ON A REGULAR DIET. PT'S FAMILY BROUGHT PT FOOD FROM OUTSIDE. WENT DOWNSTAIRS TO GET FOOD FOR PT. PT NOW SITTING UP EATING FOOD. CALL LIGHT WITHIN REACH.
[2020-02-24] VITALS (28 sets, daily range): BP systolic 58–131; BP diastolic 34–78
--- NOTE | 2020-02-24 01:20 | NUR ---
ICU/TAX CLERK PT APPEARS TO BE ASLEEP.CALL LIGHT WITHIN REACH. NO ACUTE SIGNS OF DISTRESS.
--- NOTE | 2020-02-24 03:17 | NUR ---
PRN TYLENOL 650MG PO GIVEN PATIENT C/O OF HEADACHE 07/26. ENDORSE TO PRIMARY NURSE TO REASSESS FOR PAIN.
[2020-02-24] MEDS: IV NS 0.9% 1,000 ML IV PRN ×2 (04:39→16:28)
[2020-02-24 04:40] LABS: BASOPHILS % (AUTO) 0.6 % (0.0-2.0); EOSINOPHILS % (AUTO) 1.9 % (0.0-6.0); HEMATOCRIT 23 % (33-45); HEMOGLOBIN 7.5 g/dL (11.5-14.8); LYMPHOCYTES # (AUTO) 0.7 /CMM (0.8-4.8); LYMPHOCYTES % (AUTO) 17.1 % (20.0-44.0); MEAN CORPUSCULAR HGB CONC 33 g/dl (31.0-36.0); MEAN CORPUSCULAR VOLUME 96 fL (82-100); MONOCYTES # (AUTO) 0.3 /CMM (0.1-1.30); MONOCYTES % (AUTO) 7.2 % (2.0-12.0); NEUTROPHILS # (AUTO) 3.1 /CMM (1.8-8.9); NEUTROPHILS % (AUTO) 73.2 % (43.0-81.0); PLATELET COUNT (AUTO) 126 /CMM (150-450); RED BLOOD CELL COUNT(AUTO) 2.35 MIL/uL (4.0-5.2); WHITE BLOOD COUNT (AUTO) 4.3 K/uL (4.3-11.0)
[2020-02-24] MEDS: oxyCODONE/APAP (5/325 MG) 1 UDTAB TABLET PO PRN (04:40)
--- NOTE | 2020-02-24 04:40 | NUR ---
ICU/ENGINEER CHIEF PT COMPLAINED ABOUT HEADACHE, WAS GIVEN TYLENOL EARLIER HOWEVER PT STILL REMAINS WITH HEADACHE PERCOCET WAS GIVEN FOR THIS, PAIN WAS RATED AT 7/10. CALL LIGHT WITHIN REACH. WILL MONITOR THIS PT'S PAIN.
[2020-02-24 04:57] LABS: ALBUMIN 3.6 g/dL (3.4-5.0); BILIRUBIN,TOTAL 1.6 mg/dL (0.2-1.0); CALCIUM, SERUM 8.8 mg/dL (8.5-10.1); CREATININE 0.9 mg/dL (0.6-1.3); PHOSPHORUS 2.5 mg/dL (2.5-4.9); POTASSIUM 3.8 mmol/L (3.5-5.1); TOTAL PROTEIN, SERUM 7.6 g/dL (6.4-8.2)
--- NOTE | 2020-02-24 05:53 | NUR ---
ICU/CORRECTIONAL CAPTAIN PT'S AM LABS WERE DRAWN, PT'S H/H CAME BACK AY 7.10/08. PT HAS ONE MORE UNIT TO BE GIVEN WHEN IT ARRIVES FROM THE [facility].
--- NOTE | 2020-02-24 07:00 | NUR ---
RN NOTES RECEIVED PT ON BED, A/Ox4, WELSH SPEAKING, ON RA , O2 SAT WNL , NO SOB NOTED, KYA. NEPHROSTOMY TUBES INTACT , ON TELE SR HR IN 70'S , R W AND LF IV SITES CLEAN, DRY AND INTACT, NS AT 125CC/HR RUNNING , SR UP x3, CALL LIGHT WITHIN EASY REACH , BED LOCKED AND IN LOWEST POSITION, CONTINUE TO MONITOR .
[2020-02-24 07:06] LABS: CANCER AG, 125 15.6 U/mL (0.0-38.1)
[2020-02-24] MEDS: FERROUS SULFATE (325 MG) 325 MG/TAB TABLET PO SCH ×2 (08:04→16:27)
[2020-02-24] MEDS: PANTOPRAZOLE 40 MG VIAL IV SCH (08:04)
[2020-02-24] MEDS: HYDROCODONE/APAP 5/325MG TABLET PO PRN ×2 (08:19→18:55)
--- NOTE | 2020-02-24 09:38 | NUR ---
RN NOTES PT RECEIVING ONE UNIT OF PRBC AT THIS TIME, VSS STABLE , CONTINUE TO MONITOR .
--- NOTE | 2020-02-24 12:00 | NUR ---
RN NOTES ONE UNIT OF PRBC INFUSED , VSS STABLE, PT TOLERATED WELL, CONTINUE TO MONITOR.
--- NOTE | 2020-02-24 13:00 | NUR ---
RN NOTES PT TRANSFERRED TO ROOM 113-[address] JIANG ORDER VIA ACLS PROTOCOL , IN STABLE CONDITION.
--- NOTE | 2020-02-24 13:10 | NUR ---
RN NOTES RECEIVED PT FROM ICU. VS STABLE. TELE MONITOR SHOWS SR. IV LINES INTACT, PATENT AND FLUSHED. NS RUNNING AT 125ML/HR. INFUSING WELL. NO PAIN NOTED AT THIS TIME. WILL CONTINUE TO MONITOR.
[2020-02-24 13:30] LABS: HEMOGLOBIN 8.6 g/dL (11.5-14.8)
--- NOTE | 2020-02-24 19:09 | NUR ---
RN CLOSING NOTES PT RESTING IN BED. NO SOB OR ANY RESPI DISTRESS NOTED. NO PAIN REPORTED AT THIS TIME. NO SIGNIFICANT CHANGES. NEPHROSTOMY DRAINED 800ML YELLOWISH IN COLOR. WILL ENDORSE TO MANAGER METAL FOR CONNIE
--- NOTE | 2020-02-24 19:30 | NUR ---
RN OPENING NOTE RECEIVED PT IN BED, AO X4, SPEAKS AND UNDERSTANDS WELSH ONLY, BRENNA BERKOWITZ WAS ABLE TO HELP WITH TRANSLATION. PATIENT IN NO S/SX OF ACUTE DISTRESS AT THIS TIME. NO SOB NOTED. PATIENT'S BREATHING IS EVEN AND UNLABORED. PATIENT IS SATURATING >95% ON ROOM AIR. PATIENT ON TELE MONITOR READING SR, HR IS 70. NOTED IV SITE AT R WRIST G20, AND LFA G22, BOTH PATENT AND FLUSHING WELL, NO S/S OF INFECTION OR INFILTRATION, WITH NS INFUSING AT 125 ML/HR. NOTED BILATERAL NEPHROSTOMY INTACT. NO SKIN ISSUES NOTED. SAFETY MEASURES IMPLEMENTED PER PROTOCOL. PATIENT BED ALARM IS ON. HEAD OF BED ELEVATED. BED IS LOCKED, IN LOWEST POSITION AND SIDE RAILS UP. CALL LIGHT WITHIN REACH OF THE PATIENT. WILL CONTINUE TO MONITOR AND REASSESS FOR ANY CHANGES. Addendum: 02/25/20 at 0232 by TRISHA MAE RN NURSING REPORT RECEIVED FROM NAGA WONG RN AT 2100.
--- NOTE | 2020-02-24 20:14 | NUR ---
RN NOTE SPOKE TO DR. PALOMINO. HGB 8.6. PER MD, HOLD BLOOD TRANSFUSION, ORDER NOTED AND CARRIED OUT. NOTIFIED BLOOD BANK.
[2020-02-24] MEDS: CEFTRIAXONE 1 G in IV D5W 50 ML IV SCH (22:06)
[2020-02-25] VITALS: BP 113/61
[2020-02-25] MEDS: IV NS 0.9% 1,000 ML IV PRN (02:49)
[2020-02-25] MEDS: oxyCODONE/APAP (5/325 MG) 1 UDTAB TABLET PO PRN (03:09)
[2020-02-25 04:00] VITALS: BP 127/80
[2020-02-25 06:29] LABS: BASOPHILS % (AUTO) 0.6 % (0.0-2.0); HEMATOCRIT 27 % (33-45); HEMOGLOBIN 8.9 g/dL (11.5-14.8); LYMPHOCYTES # (AUTO) 0.6 /CMM (0.8-4.8); LYMPHOCYTES % (AUTO) 11.9 % (20.0-44.0); MEAN CORPUSCULAR HGB CONC 33 g/dl (31.0-36.0); MEAN CORPUSCULAR VOLUME 96 fL (82-100); MONOCYTES # (AUTO) 0.3 /CMM (0.1-1.30); MONOCYTES % (AUTO) 6.5 % (2.0-12.0); NEUTROPHILS # (AUTO) 3.9 /CMM (1.8-8.9); PLATELET COUNT (AUTO) 114 /CMM (150-450); WHITE BLOOD COUNT (AUTO) 4.9 K/uL (4.3-11.0)
[2020-02-25 07:05] LABS: ALBUMIN 3.3 g/dL (3.4-5.0); BILIRUBIN,TOTAL 1.3 mg/dL (0.2-1.0); CALCIUM, SERUM 8.5 mg/dL (8.5-10.1); CREATININE 0.9 mg/dL (0.6-1.3); POTASSIUM 4.1 mmol/L (3.5-5.1); TOTAL PROTEIN, SERUM 7.1 g/dL (6.4-8.2)
--- NOTE | 2020-02-25 07:15 | NUR ---
RN OPENING NOTE RECEIVED PT IN BED. AO X4, ROMANIAN SPEAKING BUT UNDERSTANDS LITTLE AZERI. ON ROOM AIR SATURATING 99%. NO SOB OR ANY SIGNS OF ACUTE DISTRESS AT THIS TIME. NO PAIN NOTED. ON TELE MONITOR READING SR. IV SITE AT R WRIST G20, AND LFA G22, BOTH INTACT, PATENT AND FLUSHED. WITH NS INFUSING AT 125 ML/HR. NOTED BILATERAL NEPHROSTOMY INTACT. SAFETY MEASURES OBSERVED. CALL LIGHT WITHIN REACH. BED IS LOCKED AND AT LOWEST POSITION AND SIDE RAILS UP. WILL CONTINUE TO MONITOR.
[2020-02-25] MEDS ORDERED: PANTOPRAZOLE 40 MG TABLET.DR PO SCH (07:30)
[2020-02-25 08:00] VITALS: BP 98/57
[2020-02-25] MEDS: FERROUS SULFATE (325 MG) 325 MG/TAB TABLET PO SCH (08:52)
[2020-02-25] MEDS: HYDROCODONE/APAP 5/325MG TABLET PO PRN (10:36)
[2020-02-25 12:00] VITALS: BP 113/56
--- NOTE | 2020-02-25 15:30 | NUR ---
RN NOTES DISCHARGED PT TO HOME ON STABLE CONDITION. ACCOMPANIED BY FRIEND. IV LINE REMOVED. REFUSED FLU AND PNEUMONIA VACCINE DESPITE EDUCATION X3. DISCHARGE INSTRUCTIONS WERE PRINTED IN SWEDISH FOR BETTER UNDERSTANDING.
== END 2020-02-25 15:44 | disposition home or self-care (01) | DRG 530 ==
LOC: ER 21:14 → ICU 02-23 01:12 → TELE1 02-24 12:52
PROVIDERS: ADMIT Nurse Practitioner Acute Care; ATTEND Family Medicine
PROC: 30233N1 Transfusion of Nonautologous Red Blood Cells into Peripheral Vein, Percutaneous Approach (ICD-10-PCS; principal; 2020-02-23)
DX: C53.9 Malignant neoplasm of cervix uteri, unspecified (principal); B96.89 Other specified bacterial agents as the cause of diseases classified elsewhere; D59.10 Autoimmune hemolytic anemia, unspecified; N39.0 Urinary tract infection, site not specified; E86.1 Hypovolemia; Z93.6 Other artificial openings of urinary tract status; I95.89 Other hypotension; N83.8 Other noninflammatory disorders of ovary, fallopian tube and broad ligament; N13.30 Unspecified hydronephrosis; D64.81 Anemia due to antineoplastic chemotherapy; D63.8 Anemia in other chronic diseases classified elsewhere
CPT/HCPCS: 36415; 71045-TC; 80048-TC; 80053-TC; 80061-TC; 80076-TC; 81000-TC; 82378; 82728-TC; 83540-TC; 83735-TC; 84100-TC; 84439-TC; 84443-TC; 84703-TC; 85025-TC; 85027-TC; 85730-TC; 86304; 86850-TC; 87081-TC; 87086-TC; 87186-TC; 93307-TC; C9113; C9803-CS; G0378; J0696; J7030; J7040; J7050; J7060; P9016-BL; P9047